=== PATIENT | female | born 1965 | race Caucasian/White ===

== ENCOUNTER → 2022-09-10 14:25 | Outpatient (BNVA) | payer MEDICAID, SELFPAY | PROVIDERS: Visit Provider Emergency Medicine | DX: I10 Essential (primary) hypertension (principal); E13.9 Other specified diabetes mellitus without complications; F17.200 Nicotine dependence, unspecified, uncomplicated | CPT/HCPCS: 80053; 80061; 83036; 83721; 84443; 85025 ==

== ENCOUNTER → 2023-06-10 09:38 | Outpatient (BNVA) | payer MEDICAID, SELFPAY | PROVIDERS: PCP Family Medicine; Visit Provider Family Medicine | DX: I10 Essential (primary) hypertension (principal); E13.9 Other specified diabetes mellitus without complications; E11.40 Type 2 diabetes mellitus with diabetic neuropathy, unspecified; G47.00 Insomnia, unspecified; M19.90 Unspecified osteoarthritis, unspecified site; Z74.09 Other reduced mobility; Z78.9 Other specified health status; E11.9 Type 2 diabetes mellitus without complications; E10.42 Type 1 diabetes mellitus with diabetic polyneuropathy; F51.02 Adjustment insomnia; M15.9 Polyosteoarthritis, unspecified; F41.1 Generalized anxiety disorder; Z13.220 Encounter for screening for lipoid disorders; Z13.6 Encounter for screening for cardiovascular disorders; Z59.812 Housing instability, housed, homelessness in past 12 months | CPT/HCPCS: 80053; 80061; 83036 ==

== ENCOUNTER → 2024-09-29 10:36 | Outpatient (BNVA) | payer MEDICAID, SELFPAY | PROVIDERS: PCP Family Medicine; Visit Provider Family Medicine | DX: E11.9 Type 2 diabetes mellitus without complications (principal); E13.9 Other specified diabetes mellitus without complications; I10 Essential (primary) hypertension | CPT/HCPCS: 80053; 83036; 83735 ==

== ENCOUNTER → 2025-01-04 13:47 | Outpatient (BNVA) | payer MEDICAID, SELFPAY | PROVIDERS: PCP Family Medicine; Visit Provider Family Medicine | DX: I10 Essential (primary) hypertension (principal); E13.9 Other specified diabetes mellitus without complications | CPT/HCPCS: 80048; 80061; 83036 ==

== ENCOUNTER → 2025-03-14 13:34 | Outpatient (BNVA) | payer MEDICAID, SELFPAY | PROVIDERS: PCP Family Medicine; Visit Provider Family Medicine | DX: E11.9 Type 2 diabetes mellitus without complications (principal) | CPT/HCPCS: 83036 ==

== ENCOUNTER → 2025-06-12 14:12 | Outpatient (BNVA) | payer MEDICAID, SELFPAY ==
[2025-03-24 10:22] VITALS: BP 146/80; BMI 21.5
== END ==
PROVIDERS: PCP Family Medicine; Visit Provider Family Medicine
DX: E13.9 Other specified diabetes mellitus without complications (principal)
CPT/HCPCS: 80048; 83036